=== PATIENT | male | born 1995 | race Caucasian/White ===

== ENCOUNTER 2021-11-27 16:18 | Emergency (ER) | payer OTHER, SELFPAY ==
--- NOTE | ~2021-11-27 | XR_ITS ---
XR hip LT min 3V w AP pelvis DATE: 11/27/2021 17:05 INDICATION: Hip pain for one week. [place] a pop today. No known injury. TECHNIQUE: AP pelvis. AP, lateral and crosstable lateral views of left hip COMPARISON: None FINDINGS: The pubic symphysis and sacroiliac joints are intact. No pelvic fracture or bone destructio n. Hip joint spaces are symmetric and well preserved. No fracture, dislocation, avascular necrosis or bone destruction of the left hip. IMPRESSION: Negative Reviewed, dictated and finalized at location A. IMPRESSION: Negative
[2021-11-27 16:23] VITALS: BP 155/93; PULSE 102; RESP 16; TEMP 37.1; O2SAT 99
--- NOTE | 2021-11-27 16:56 | ED.GENADULT ---
HPI - General Adult General Chief complaint: Extremity Injury, Lower Stated complaint: left hip pain Time Seen by Provider: 11/27/21 16:40 History of Present Illness HPI narrative: Patient is a 26-year-old gentleman who presented emergency room with complaints of left hip pain. Patient states the pain began on Sunday with movement. Patient states that it continued through Sunday and then began September. Patient denies trying any dmwz-jyb-tuiglrv medication, ice, or heat to the area to help with this pain. Patient states that he was taking something to the trash and he felt a pop in his hip and that he began having pain. Patient states that he came to the emergency room recently because he thought he may have herniated his hip. Patient denies any congenital deformities to his hips. Patient denies ever having any trauma or injury to this area. Related Data Allergies Allergy/AdvReac Type Severity Reaction Status Date / Time No Known Allergies Allergy Unverified 08/04/18 08:50 Review of Systems Review of Systems: 12 point review systems was completed prechopper positive negative per HPI remainder are unremarkable Exam Narrative: Constitutional: Patient is well-nourished in no acute distress HEENT: Moist mucous membranes. No scleral icterus. No lymphadenopathy. Lungs: Lung sounds are clear to auscultation bilaterally. No accessory muscle use. No rhonchi, rales, or wheezes noted. Cardiovascular: Apical pulse is regular rate and rhythm. S1-S2 noted, no S3 or S4 noted. No gallops, murmurs, or rubs noted. Abdomen: Soft, round, and nontender. No palpable masses. Extremities: No edema. Nontender. Patient does have click to left hip with passive range of motion. Skin: No rashes or lesions. Warm and dry. Skin is intact. Neurological: No focal neurological deficits. Cranial nerves II-XII grossly intact. Psychiatric: Cooperative, appropriate mood, and affect. Course Course Emergency Course: Patient presented to emergency with complaints of left hip pain after trying to trash out and feeling a pop in his hip. Hip x-ray shows no fracture, dislocation, avascular necrosis or bone destruction of the left hip. At this point time patient can be discharged and take wavf-xgh-obfvgwi ibuprofen or Tylenol for any pain. If patient continues to have issues he needs to follow-up with his primary care provider. Vital Signs Vital signs: Vital Signs Temperature 37.1 C 11/27/21 16:23 Pulse Rate 102 H 11/27/21 16:23 Respiratory Rate 16 11/27/21 16:23 Blood Pressure 155/93 H 11/27/21 16:23 Pulse Oximetry 99 11/27/21 16:23 Temperature 37.1 C 11/27/21 16:23 Pulse Rate 102 H 11/27/21 16:23 Respiratory Rate 16 11/27/21 16:23 Blood Pressure 155/93 H 11/27/21 16:23 Pulse Oximetry 99 11/27/21 16:23 Medical Decision Making Differential Diagnosis Differential Diagnosis: Dislocation, fracture, osteoarthritis, avascular necrosis Vital Signs Vital Signs: Vital Signs Temperature 37.1 C 11/27/21 16:23 Pulse Rate 102 H 11/27/21 16:23 Respiratory Rate 16 11/27/21 16:23 Blood Pressure 155/93 H 11/27/21 16:23 Pulse Oximetry 99 11/27/21 16:23 Temperature 37.1 C 11/27/21 16:23 Pulse Rate 102 H 11/27/21 16:23 Respiratory Rate 16 11/27/21 16:23 Blood Pressure 155/93 H 11/27/21 16:23 Pulse Oximetry 99 11/27/21 16:23 Imaging Data Radiologist's impression: FINDINGS: The pubic symphysis and sacroiliac joints are intact. No pelvic fracture or bone destruction. Hip joint spaces are symmetric and well preserved. No fracture, dislocation, avascular necrosis or bone destruction of the left hip. IMPRESSION: Negative Reviewed, dictated and finalized at location A. Dictated By: Odilon Méndez MD 11/27/211711 Signed By: <Electronically signed by Odilon Méndez MD in [place]> D
== END 2021-11-27 18:30 | disposition home or self-care (01) ==
PROVIDERS: Emergency Provider Nurse Practitioner Adult Health
DX: M25.552 Pain in left hip (principal)
CPT/HCPCS: 73502; 99283

== ENCOUNTER 2021-11-28 10:39 | Emergency (ER) | payer OTHER, SELFPAY ==
--- NOTE | ~2021-11-28 | CT_ITS ---
EXAMINATION: CT lumbar spine wo con DATE: 11/28/2021 13:01 INDICATION: Low back pain TECHNIQUE: Computed tomography (CT) of the lumbar spine was performed without intravenous contrast. T he dose-length product was 515.22 mGy-cm. Automated exposure control and iterative reconstruction hanny hnique were employed. COMPARISON: None FINDINGS: Vertebral body and disc heights are preserved. No fracture or traumatic malalignment. No ev idence for spondylolisthesis. There is mild left paracentral annular disc bulges at L4-5 and L5-S1 wi thout significant spinal stenosis. There is a small bone island in the left ilium. No acute fracture or traumatic malalignment. Paraspinal soft tissues are unremarkable. Mild levocurvature of the lumbar spine. IMPRESSION: 1. No acute abnormality of the lumbar spine. Reviewed, dictated and finalized at location A.
[2021-11-28 11:13] VITALS: BP 130/62; PULSE 86; RESP 14; TEMP 36.8; O2SAT 100
[2021-11-28 11:28] VITALS: BP 150/96; PULSE 85; RESP 14; O2SAT 100
--- NOTE | 2021-11-28 12:53 | ED.LOWEXIN ---
HPI - Extremity Injury (Lower) General Chief Complaint: Extremity Injury, Lower Stated Complaint: L hip pain, seen yesterday for same cc Time Seen by Provider: 11/28/21 11:26 Source: patient Mode of arrival: ambulatory Limitations: no limitations History of Present Illness HPI Narrative: 26-year-old male presents today with complaints of left buttock pain. Patient was seen. Recently for the same issue x-rays were negative. Patient states pain persisted and is worse and is not controlled with upke-uja-euqhvdr medicines at this time. Patient only took Tylenol last night. Patient states he cannot get into her primary until Sunday. Patient denies any urinary incontinence, stool incontinence, saddle paresthesia. Related Data Allergies Allergy/AdvReac Type Severity Reaction Status Date / Time No Known Allergies Allergy Verified 11/28/21 11:28 Review of Systems Review of Systems: CONSTITUTIONAL: Denies fever, chills, or sweats. EYES: Denies visual changes, redness, or discharge. ENT: Denies rhinorrhea, congestion, sore throat, or otalgia. CARDIOVASCULAR: Denies chest pain, palpitations, or edema. RESPIRATORY: Denies cough or dyspnea. GASTROINTESTINAL: Denies abdominal pain, nausea, vomiting, or diarrhea. GENITOURINARY: Denies dysuria or hematuria. SKIN: Denies rash or itching. MUSCULOSKELETAL: Left buttock pain. Denies back pain, joint pain, or myalgia. NEUROLOGIC: Denies headache, numbness, dizziness, or weakness. PSYCHIATRIC: Denies anxiety or depression. Exam Narrative: GENERAL: Well-appearing, well-nourished, and in no acute distress. HEAD: Normocephalic, atraumatic. EYES: PERRLA and EOMI. ENT: Nares clear, no rhinorrhea or epistaxis. Mucous membranes moist. Oropharynx without tonsillar hypertrophy exudate or other lesions. Bilateral TMs pearly [place] nonbulging NECK: Supple. No adenopathy or masses. No carotid bruits or JVD CHEST: Clear to auscultation. No respiratory distress. No wheezes rales or rhonchi HEART: Regular rate and rhythm. No murmur heard. Normal peripheral pulses. ABDOMEN: Soft, nontender, nondistended, normal active bowel sounds. BACK/SPINE: Tenderness to lumbar spine with pain radiating down to the left buttock. EXTREMITIES: Normal range of motion. No edema. SKIN: Warm, dry, no rash. NEURO: No focal deficits. Alert and oriented x3. PSYCH: Normal mood and affect. Course Course Emergency Course: Imaging reviewed with patient. Patient discharged home with plan to follow-up with primary. Aware of the possible need for physical therapy or further imaging. Patient in agreement with plan of care. Vital Signs Vital signs: Vital Signs Temperature 36.8 C 11/28/21 11:13 Pulse Rate 86 11/28/21 11:13 Respiratory Rate 14 11/28/21 11:13 Blood Pressure 130/62 11/28/21 11:13 Pulse Oximetry 100 11/28/21 11:13 Temperature 36.8 C 11/28/21 11:13 Pulse Rate 79 11/28/21 13:45 Respiratory Rate 14 11/28/21 13:45 Blood Pressure 138/79 11/28/21 13:45 Pulse Oximetry 100 11/28/21 13:45 MDM - Extremity Injury (Lower) Differential Diagnosis Differential diagnosis: Likely other (Sciatica, lumbar radiculopathy, lumbar bulging disks.) Medical Records Attestation: I reviewed the patient's medical records. Imaging Data Attestation: I personally reviewed and interpreted this imaging study as follows: My impression: Impressions Lumbar Spine CT 11/28/21 13:21 IMPRESSION: 1. No acute abnormality of the lumbar spine. Discharge Plan Discharge Clinical Impression: Lumbar radicular pain Patient Disposition: Home, Self-Care Condition: Stable Instructions: Antibiotic Form Additional Instructions: Take naproxen twice a day for 1 week then may go to twice a day as needed for pain. Follow-up with your primary provider for further management. Prescriptions: New naproxen 500 mg tablet 500 mg PO BID Qty: 60 RF: 0 Follow-up/Referrals: PHYSICIAN,CONTENT ARCHITECT [P
--- NOTE | 2021-11-28 12:58 | PC.NURSE ---
pt. to ct
[2021-11-28] MEDS: KETOROLAC (*BKC) 60 MG/2 ML VIAL IM (13:07)
[2021-11-28 13:45] VITALS: BP 138/79; PULSE 79; RESP 14; O2SAT 100
== END 2021-11-28 14:06 | disposition home or self-care (01) ==
PROVIDERS: Emergency Provider Nurse Practitioner Family
DX: M54.16 Radiculopathy, lumbar region (principal)
CPT/HCPCS: 72131; 96372; 99284; J1100; J1885